=== PATIENT | female | born 1950 | race Caucasian/White ===

== ENCOUNTER 2017-04-09 15:22 | Emergency (ER) | payer MEDICARE, MEDICAID ==
[2017-04-09 15:32] VITALS: BP 138/75; RESP 16; TEMP 98.5; O2SAT 97
[2017-04-09 16:23] LABS: BASO % 0.3 % (0.0-2.0); EOS # 0.2 K/uL (0.0-0.7); EOS % 2.4 % (0.0-4.0); HEMATOCRIT 41.3 % (34.0-47.0); LYMPH % 32.1 % (20.0-40.0); MEAN CORPUSCULAR HEMOGLOBIN 29.3 pg (27.0-31.0); MEAN CORPUSCULAR HGB CONC 32.9 g/dL (33.0-37.0); MEAN PLATELET VOLUME 8.3 fl (7.2-11.7); MONO # 0.7 K/uL (0.0-0.8); MONO % 7.7 % (0.0-10.0); NEUT # 5.4 K/uL (1.8-7.0); NEUT % 57.5 % (50.0-75.0); RED CELL DISTRIBUTION WIDTH 13.8 % (11.5-14.5); WHITE BLOOD COUNT 9.3 K/uL (4.8-10.8)
[2017-04-09 16:36] LABS: RBC URINE 8 /hpf (0-3); URINE BILIRUBIN NEGATIVE (NEGATIVE); URINE BLOOD SMALL (NEGATIVE); URINE COLOR YELLOW (YELLOW); URINE GLUCOSE (UA) NEG (Normal); URINE KETONE NEGATIVE (NEGATIVE); URINE LEUKOCYTE ESTERASE NEG Leu/uL (Negative); URINE PROTEIN NEGATIVE (NEGATIVE); URINE UROBILINOGEN 0.2-1.0 mg/dL (0.2-1.0); WBC URINE < 1 /hpf (0-5)
[2017-04-09 16:41] LABS: ALB/GLOB RATIO 1.3 (1.0-2.1); ALKALINE PHOSPHATASE 154 U/L (38-126); ALT/SGPT 55 U/L (9-52); AST/SGOT 52 U/L (14-36); BILIRUBIN,TOTAL 0.4 mg/dl (0.2-1.3); BLOOD UREA NITROGEN 20 mg/dl (7-17); CALCIUM 9.5 mg/dL (8.4-10.2); CARBON DIOXIDE 25 mmol/L (22-30); CHLORIDE 105 mmol/L (98-107); GFR AFRICAN-AMERICAN > 60; GLUCOSE,RANDOM 92 mg/dL (65-105); POTASSIUM 4.1 MMOL/L (3.6-5.0); SODIUM 142 mmol/l (132-148); TOTAL PROTEIN 7.9 G/DL (6.3-8.2)
[2017-04-09 17:55] VITALS: PULSE 70
== END 2017-04-09 18:04 | disposition home or self-care (01) ==
LOC: H.ER 15:22
DX: M54.9 Dorsalgia, unspecified (principal); R06.02 Shortness of breath

== ENCOUNTER 2017-12-28 19:10 | Emergency (ER) | payer MEDICARE, MEDICAID ==
[2017-12-28 19:27] VITALS: TEMP 96.7; O2SAT 100
[2017-12-28] MEDS ORDERED: Iohexol 240 (50 ml) PO STA (20:04)
--- NOTE | 2017-12-28 20:26 | ED PDOC ---
HPI: Abdomen Time Seen by Provider: 12/28/17 19:38 Chief Complaint (Nursing): Abdominal Pain Chief Complaint (Provider): Abdominal Pain History Per: Patient History/Exam Limitations: no limitations Onset/Duration Of Symptoms: Days (x1) Outside of [place] travel?: No Current Symptoms Are (Timing): Still Present Quality Of Discomfort: Sharp, Cramping, "Pain" Associated Symptoms: Nausea, Diarrhea (x4 episodes). denies: Fever, Chills, Vomiting, Urinary Symptoms Additional Complaint(s): 67 year old female with a history of diverticulosis presents to the ED for sharp cramping abdominal pain onset last night associated 4 episodes nonbloody watery diarrhea. She reports nausea and no appetite but denies vomiting, PO intake, fever, chills, travel, urinary symptoms, or any other medical complaints. She states she took augmentin for an ear infection 2 weeks ago. PMD: Dr. Duarte Harvey Past Medical History Reviewed: Historical Data, Nursing Documentation, Vital Signs Vital Signs: Last Vital Signs Temp 96.7 F L 12/28/17 19:24 Pulse 90 12/29/17 00:48 Resp 20 12/29/17 00:48 BP 128/65 12/29/17 00:48 Pulse Ox 100 12/30/17 03:59 - Medical History Other PMH: diverticulosis - Surgical History Other surgeries: Tubal ligation - Family History Family History: States: Unknown Family Hx - Social History Current smoker - smoking cessation education provided: No Ex-Smoker (has not smoked in the last 12 months): No Alcohol: None Drugs: Denies - Immunization History Hx Tetanus Toxoid Vaccination: No Hx Influenza Vaccination: Yes Hx Pneumococcal Vaccination: No - Home Medications Home Medications: Ambulatory Orders Medication Instructions Recorded Meloxicam [Mobic] 7.5 mg PO DAILY PRN #30 tab 04/09/17 Methocarbamol [Robaxin] 500 mg PO Q8 PRN #30 tab 04/09/17 Ondansetron ODT [Zofran ODT] 4 mg PO Q6 PRN #16 odt 12/29/17 - Allergies Allergies/Adverse Reactions: Allergies Allergy/AdvReac Type Severity Reaction Status Date / Time No Known Allergies Allergy Verified 12/28/17 19:24 Review of Systems ROS Statement: Except As Marked, All Systems Reviewed And Found Negative Gastrointestinal: Positive for: Nausea, Abdominal Pain, Diarrhea. Negative for : Vomiting Physical Exam - Reviewed Nursing Documentation Reviewed: Yes Vital Signs Reviewed: Yes - Physical Exam Appears: Positive for: Non-toxic, In Acute Distress (painful) Head Exam: Positive for: ATRAUMATIC, NORMOCEPHALIC Skin: Positive for: Warm, Dry Eye Exam: Positive for: EOMI, PERRL ENT: Negative for: Pharyngeal Erythema, Tonsillar Exudate Neck: Positive for: Painless ROM, Supple Cardiovascular/Chest: Positive for: Regular Rate, Rhythm, Chest Non Tender Respiratory: Positive for: Normal Breath Sounds. Negative for: Respiratory Distress Gastrointestinal/Abdominal: Positive for: Soft, Tenderness (to palpation bilateral lower quadrants ), Other (positive McBurney's point tenderness, negative Juani's sign). Negative for: Mass, Guarding, Rebound Back: Positive for: Normal Inspection. Negative for: Decreased ROM Extremity: Positive for: Normal ROM. Negative for: Deformity Lymphatic: Negative for: Adenopathy Neurologic/Psych: Positive for: Alert. Negative for: Motor/Sensory Deficits - Laboratory Results Result Diagrams: 12/28/17 20:35 12/28/17 20:35 - ECG O2 Sat by Pulse Oximetry: 100 (RA) Pulse Ox Interpretation: Normal Medical Decision Making Medical Decision Making: Time: 20:04 Initial Impression: Abdominal pain Differential diagnoses include but are not limited to: Diverticulitis, colitis, enteritis, appendicitis Initial Plan: --CT abd & pelvis --CMP --Lactic acid --Lipase --Magnesium --Phosphorus --U preg --CBC with differentials --Onmipaque 50 ml PO --Toradol 15 mg IVP Scribe Attestation: Documented by Patricia Arriaza, acting as a scribe for Cecelia Starkey MD Provider Scribe Attestation: All medical record entries made by the Scribe were at my direction and personally dictated by me. I have reviewed the chart and agree that the record accurately reflects my personal performance of the history, physical exam, medical decision making, and the department course for this patient. I have also personally directed, reviewed, and agree with the discharge instructions and disposition Disposition - Clinical Impression Clinical Impression: Abdominal pain - Patient ED Disposition Is Patient to be Admitted: Transfer of Care - Disposition Disposition: Transfer of Care Disposition Time: 00:00 Condition: STABLE Additional Instructions: ZOLTAN WAN, thank you for letting us take care of you today. Your provider was Eran Nelson MD and you were treated for ABD PAIN. The emergency medical care you received today was directed at your acute symptoms. If you were prescribed any medication, please fill it and take as directed. It may take several days for your symptoms to resolve. Return to the Emergency Department if your symptoms worsen, do not improve, or if you have any other problems. Please contact your doctor or call one of the physicians/clinics you have been referred to that are listed on the Patient Visit Information form that is included in your discharge packet. Bring any paperwork you were given at discharge with you along with any medications you are taking to your follow up visit. Our treatment cannot replace ongoing medical care by a primary care provider outside of the emergency department. Thank you for allowing the [facility] team to be part of your care today. If you had an X-Ray or CT scan: A Radiologist will review the ED reading if any change in treatment is needed we will contact you. If you had a blood, urine, or wound culture: It will take several days for the results, if any change in treatment is needed we will contact you. If you had an STI test: It will take 48 hours for the results. Please call after 1 week if you have not heard back. Prescriptions: Ondansetron ODT [Zofran ODT] 4 mg PO Q6 PRN #16 odt PRN Reason: Nausea/Vomiting Instructions: Acute Abdomen (Belly Pain) Forms: [employer] (Occitan) Patient Signed Over To: Eran Nelson Handoff Comments: pending Ct and final disposition
[2017-12-28 20:39] LABS: BASO % 0.4 % (0.0-2.0); EOS # 0.2 K/uL (0.0-0.7); EOS % 1.8 % (0.0-4.0); HEMOGLOBIN 13.6 g/dL (12.0-16.0); LYMPH # 2.6 K/uL (1.0-4.3); LYMPH % 26.6 % (20.0-40.0); MEAN CELL VOLUME 89.8 fl (81.0-99.0); MEAN CORPUSCULAR HEMOGLOBIN 30.4 pg (27.0-31.0); MEAN CORPUSCULAR HGB CONC 33.8 g/dL (33.0-37.0); MEAN PLATELET VOLUME 8.2 fl (7.2-11.7); MONO # 0.7 K/uL (0.0-0.8); MONO % 7.2 % (0.0-10.0); NEUT # 6.4 K/uL (1.8-7.0); RBC 4.48 Mil/uL (3.80-5.20); RED CELL DISTRIBUTION WIDTH 14.2 % (11.5-14.5)
[2017-12-28 20:52] LABS: ALB/GLOB RATIO 1.2 (1.0-2.1); ALBUMIN 4.3 g/dL (3.5-5.0); ALT/SGPT 53 U/L (9-52); AST/SGOT 50 U/L (14-36); BLOOD UREA NITROGEN 12 mg/dl (7-17); CALCIUM 9.6 mg/dL (8.4-10.2); GFR AFRICAN-AMERICAN > 60; GFR NON-AFRICAN AMERICAN > 60; LIPASE 41 U/L (23-300)
[2017-12-28] MEDS ORDERED: Iohexol 300 100 ML IJ ONE (23:16)
[2017-12-28] MEDS ORDERED: Sodium Chloride 0.9% 50 ML IV ONE (23:16)
--- NOTE | 2017-12-29 00:34 | ED PDOC ---
- Laboratory Results Result Diagrams: 12/28/17 20:35 12/28/17 20:35 - ECG O2 Sat by Pulse Oximetry: 100 (RA) Medical Decision Making Medical Decision Making: Time; 00:00 --Patient's care transferred to Dr. Nelson by Dr. Starkey pending CT results and final disposition. Labs reveal no clinically significant abnormalities. CT FINDINGS: Lung bases: Atelectasis posterior lungs. ABDOMEN: Liver: Fatty infiltration of the liver. Gallbladder and bile ducts: Unremarkable. No calcified stones. No ductal dilation. Pancreas: Unremarkable. No mass. No ductal dilation. Spleen: Unremarkable. No splenomegaly. Adrenals: Unremarkable. No mass. Kidneys and ureters: Unremarkable. No solid mass. No hydronephrosis. Stomach and bowel: Unremarkable. No obstruction. No mucosal thickening. PELVIS: Appendix: Normal appendix. Bladder: Unremarkable. No mass. Reproductive: Calcified uterine fibroid. ABDOMEN and PELVIS: Intraperitoneal space: Unremarkable. No free air. No significant fluid collection. Bones/joints: No acute fracture. No dislocation. Soft tissues: Unremarkable. 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 No abdominal aortic aneurysm. Lymph nodes: Unremarkable. No enlarged lymph nodes. IMPRESSION: No acute findings. Time: 00:33 --Patient is stable and will be discharged home. Diagnosis is abdominal pain. Return to the ED if symptoms persist or worsen. Follow up with PMD. ---- Scribe Attestation: Documented by Dominga Johansen, acting as a scribe for Eran Nelson MD Provider Scribe Attestation: All medical record entries made by the Scribe were at my direction and personally dictated by me. I have reviewed the chart and agree that the record accurately reflects my personal performance of the history, physical exam, medical decision making, and the department course for this patient. I have also personally directed, reviewed, and agree with the discharge instructions and disposition. Disposition - Clinical Impression Clinical Impression: Abdominal pain - POA Present On Arrival: None - Disposition Disposition: Routine/Home Disposition Time: 00:33 Condition: STABLE Additional Instructions: ZOLTAN WAN, thank you for letting us take care of you today. Your provider was Eran Nelson MD and you were treated for ABD PAIN. The emergency medical care you received today was directed at your acute symptoms. If you were prescribed any medication, please fill it and take as directed. It may take several days for your symptoms to resolve. Return to the Emergency Department if your symptoms worsen, do not improve, or if you have any other problems. Please contact your doctor or call one of the physicians/clinics you have been referred to that are listed on the Patient Visit Information form that is included in your discharge packet. Bring any paperwork you were given at discharge with you along with any medications you are taking to your follow up visit. Our treatment cannot replace ongoing medical care by a primary care provider outside of the emergency department. Thank you for allowing the [facility] team to be part of your care today. If you had an X-Ray or CT scan: A Radiologist will review the ED reading if any change in treatment is needed we will contact you. If you had a blood, urine, or wound culture: It will take several days for the results, if any change in treatment is needed we will contact you. If you had an STI test: It will take 48 hours for the results. Please call after 1 week if you have not heard back. Prescriptions: Ondansetron ODT [Zofran ODT] 4 mg PO Q6 PRN #16 odt PRN Reason: Nausea/Vomiting Instructions: Acute Abdomen (Belly Pain) Forms: [employer] (Latvian)
[2017-12-29 00:48] VITALS: BP 128/65; PULSE 90; RESP 20
--- NOTE | 2017-12-29 15:31 | CT ---
PROCEDURE: CT scan abdomen pelvis 12/28/2017 HISTORY: Abdominal pain. COMPARISON: None. TECHNIQUE: Contiguous helical/ transaxial sections of the pelvis performed following oral and intravenous injection of approximately 90 cc Omnipaque 300 contrast material. Additional 2D sagittal and coronal reformats provided generated. Radiation dose: Total exam DLP = 624.67 mGy-cm. This CT exam was performed using one or more of the following dose reduction techniques: Automated exposure control, adjustment of the mA and/or kV according to patient size, and/or use of iterative reconstruction technique. FINDINGS: LOWER THORAX: Lung bases clear. No infiltrate effusion or basilar pneumothorax. LIVER: Liver is enlarged measuring just over 20 cm in CC dimension. Liver demonstrates moderate to fairly significant diffuse fatty hepatic infiltration. No obvious hepatic mass collection or calcification. Portal and splenic veins are patent. GALLBLADDER AND BILE DUCTS: Gallbladder physiologically distended. No evidence of intraluminal gallbladder calculi. PANCREAS: Unremarkable. No gross lesion or ductal dilatation. SPLEEN: Spleen exhibits normal size. No evidence of splenic mass collection or calcification. ADRENALS: There are no adrenal lesions seen. KIDNEYS AND URETERS: Kidneys demonstrate symmetric nephrograms. No evidence of nephrolithiasis or hydronephrosis. VASCULATURE: Unremarkable. No aortic aneurysm. BOWEL: Evaluation of the bowel is limited due to incomplete opacification. The stomach is incompletely distended which in part accounts for thick-walled appearance. Gastritis or other intrinsic wall lesion not excluded. Visualized loops of small bowel exhibit normal contour and caliber. No evidence of acute mechanical small bowel obstruction. There are scattered colonic diverticula seen along the sigmoid and distal descending colon however no radiographic evidence of acute diverticulitis. APPENDIX: The appendix unremarkable best seen on axial image number [id number]. No periappendiceal inflammatory changes. PERITONEUM: Unremarkable. No free fluid. No free air. Small fat containing umbilical hernia. LYMPH NODES: Unremarkable. No enlarged lymph nodes. BLADDER: Urinary bladder is incompletely distended which in part accounts thick-walled appearance. Correlation with urinalysis suggested to exclude cystitis. REPRODUCTIVE: Calcified uterine fibroid. Slightly prominent endometrial canal. . Consider follow-up pelvic ultrasound for further evaluation to exclude endometrial pathology. . There is mild locally enlarged venous engorgement -congestion left periuterine region suggesting gonadal vein incontinence. Clinical correlation recommended. BONES: Minor multilevel degenerative spondylosis of the lower thoracic and lumbar spine. There are no acute compression fractures no retropulsed fragments. OTHER FINDINGS: None. 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 Calcified uterine fibroid. Prominent endometrial canal; recommend followup pelvic ultrasound to exclude in the endometrial pathology.
== END 2017-12-29 00:52 | disposition home or self-care (01) ==
LOC: H.ER 19:10
DX: R10.9 Unspecified abdominal pain (principal); R19.7 Diarrhea, unspecified; R11.0 Nausea; D25.9 Leiomyoma of uterus, unspecified
CPT/HCPCS: 74177; 80053; 83605; 83690; 83735; 84100; 85025; 87040; 96374; 99284; J1885; Q9966; Q9967

== ENCOUNTER 2018-03-19 16:10 | Emergency (ER) | payer MEDICARE, MEDICAID ==
[2018-03-19 16:32] VITALS: BP 130/84; PULSE 80; RESP 18; TEMP 97.7; O2SAT 98
[2018-03-19] MEDS ORDERED: Iohexol 240 (50 ml) PO ONE ×2 (16:59→17:00)
[2018-03-19] MEDS ORDERED: Sodium Chloride 0.9% 1,000 ML IV STA (17:00)
--- NOTE | 2018-03-19 17:03 | ED PDOC ---
HPI: Abdomen Time Seen by Provider: 03/19/18 16:42 Chief Complaint (Nursing): Abdominal Pain Chief Complaint (Provider): Abd pain History Per: Patient History/Exam Limitations: no limitations Onset/Duration Of Symptoms: Days (1 week) Current Symptoms Are (Timing): Still Present Additional Complaint(s): Pt. with constant pain RLQ and right lower back for 1 week. No nausea, vomit, diarrhea, weakness, dysuria. No vaginal bleed. No fever. Started after pushing something heavy. No numbness, tingles, incontinence, constipation. Past Medical History Reviewed: Nursing Documentation, Vital Signs Vital Signs: Last Vital Signs Temp 97.7 F 03/19/18 16:30 Pulse 80 03/19/18 16:30 Resp 18 03/19/18 16:30 BP 130/84 03/19/18 16:30 Pulse Ox 98 03/19/18 17:03 - Medical History PMH: No Chronic Diseases - Surgical History Surgical History: No Surg Hx - Family History Family History: States: Unknown Family Hx - Immunization History Hx Tetanus Toxoid Vaccination: No Hx Influenza Vaccination: Yes Hx Pneumococcal Vaccination: No - Home Medications Home Medications: Ambulatory Orders Medication Instructions Recorded Meloxicam [Mobic] 7.5 mg PO DAILY PRN #30 tab 04/09/17 Methocarbamol [Robaxin] 500 mg PO Q8 PRN #30 tab 04/09/17 Ondansetron ODT [Zofran ODT] 4 mg PO Q6 PRN #16 odt 12/29/17 - Allergies Allergies/Adverse Reactions: Allergies Allergy/AdvReac Type Severity Reaction Status Date / Time No Known Allergies Allergy Verified 12/28/17 19:24 Review of Systems ROS Statement: Except As Marked, All Systems Reviewed And Found Negative Gastrointestinal: Positive for: Abdominal Pain Musculoskeletal: Positive for: Back Pain Physical Exam - Reviewed Nursing Documentation Reviewed: Yes Vital Signs Reviewed: Yes - Physical Exam Appears: Positive for: Non-toxic, No Acute Distress Head Exam: Positive for: ATRAUMATIC, NORMAL INSPECTION, NORMOCEPHALIC Skin: Positive for: Normal Color, Warm, DRY Eye Exam: Positive for: EOMI, Normal appearance, PERRL ENT: Positive for: Normal ENT Inspection Neck: Positive for: Normal, Painless ROM Cardiovascular/Chest: Positive for: Regular Rate, Rhythm Respiratory: Positive for: CNT, Normal Breath Sounds Gastrointestinal/Abdominal: Positive for: Soft, Tenderness (RLQ) Back: Positive for: Other (mild right lower). Negative for: L CVA Tenderness, R CVA Tenderness Extremity: Positive for: Normal ROM. Negative for: Tenderness Neurologic/Psych: Positive for: Alert, Oriented - Laboratory Results Result Diagrams: 03/19/18 17:45 03/19/18 17:45 Interpretation Of Abn Labs: mild elevated ast/alt - ECG O2 Sat by Pulse Oximetry: 98 Pulse Ox Interpretation: Normal - Progress ED Course And Treament: 1855: Dr. Ordoñez to fu on urine and ct. Stable. AAOx3. Disposition - Clinical Impression Clinical Impression: Abdominal pain, Abdominal tenderness - Patient ED Disposition Is Patient to be Admitted: Transfer of Care - Disposition Disposition Time: 18:56 Condition: STABLE Patient Signed Over To: Willi Ordoñez
[2018-03-19] MEDS ORDERED: Iohexol 240 (50 ml) ONE (17:45)
[2018-03-19 17:54] LABS: BASO # 0.1 K/uL (0.0-0.2); BASO % 0.7 % (0.0-2.0); EOS # 0.1 K/uL (0.0-0.7); EOS % 1.7 % (0.0-4.0); HEMOGLOBIN 13.9 g/dL (12.0-16.0); LYMPH # 2.5 K/uL (1.0-4.3); LYMPH % 33.6 % (20.0-40.0); MEAN CELL VOLUME 90.7 fl (81.0-99.0); MEAN CORPUSCULAR HEMOGLOBIN 30.2 pg (27.0-31.0); MEAN CORPUSCULAR HGB CONC 33.3 g/dL (33.0-37.0); MEAN PLATELET VOLUME 8.4 fl (7.2-11.7); MONO # 0.6 K/uL (0.0-0.8); MONO % 7.8 % (0.0-10.0); NEUT # 4.3 K/uL (1.8-7.0); NEUT % 56.2 % (50.0-75.0); NRBC % 0.1 % (0.0-0.0); RBC 4.6 Mil/uL (3.80-5.20); RED CELL DISTRIBUTION WIDTH 14.1 % (11.5-14.5); WHITE BLOOD COUNT 7.6 K/uL (4.8-10.8)
[2018-03-19 17:58] LABS: ALB/GLOB RATIO 1.2 (1.0-2.1); ALBUMIN 4.3 g/dL (3.5-5.0); BLOOD UREA NITROGEN 20 mg/dl (7-17); CALCIUM 8.8 mg/dL (8.4-10.2); GFR NON-AFRICAN AMERICAN > 60
[2018-03-19 18:03] LABS: ALT/SGPT 63 U/L (9-52); AST/SGOT 57 U/L (14-36)
[2018-03-19] MEDS ORDERED: Sodium Chloride 0.9% 50 ML IV ONE (20:06)
[2018-03-19] MEDS ORDERED: Iohexol 300 100 ML IJ ONE (20:06)
--- NOTE | 2018-03-19 21:14 | ED PDOC ---
"- Laboratory Results Result Diagrams: 03/19/18 17:45 03/19/18 17:45 - ECG O2 Sat by Pulse Oximetry: 98 Pulse Ox Interpretation: Normal Medical Decision Making Medical Decision MakinPM Endorsed to me by Dr. Cook pending CT and re-eval 9PM EXAM: CT Abdomen and Pelvis With Intravenous Contrast CLINICAL HISTORY: 67 years old, female; Pain; Abdominal pain; Localized; Right lower quadrant (rlq); Additional info: Abd pain TECHNIQUE: Axial computed tomography images of the abdomen and pelvis with intravenous contrast. All CT scans at this facility use at least one of these dose optimization techniques: automated exposure control; mA and/or kV adjustment per patient size (includes targeted exams where dose is matched to clinical indication); or iterative reconstruction. Coronal and sagittal reformatted images were created and reviewed. CONTRAST: 95 mL of [id number] was administered intravenously. COMPARISON: No relevant prior studies available. FINDINGS: Lung bases: Unremarkable. No mass. No consolidation. ABDOMEN: Liver: Fatty infiltration of the liver. Gallbladder and bile ducts: Unremarkable. No calcified stones. No ductal dilation. Pancreas: Unremarkable. No mass. No ductal dilation. Spleen: Unremarkable. No splenomegaly. Adrenals: Unremarkable. No mass. Kidneys and ureters: Unremarkable. No solid mass. No hydronephrosis. Stomach and bowel: Unremarkable. No obstruction. No mucosal thickening. PELVIS: Appendix: Normal appendix. Bladder: Unremarkable. No mass. Reproductive: Calcified uterine fibroid. ABDOMEN and PELVIS: Intraperitoneal space: Unremarkable. No free air. No significant fluid collection. Bones/joints: No acute fracture. No dislocation. Soft tissues: Unremarkable. 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 No abdominal aortic aneurysm. Lymph nodes: Unremarkable. No enlarged lymph nodes. ZOLTAN RAMSAY | Preliminary Radiology Report HIDE WORKER (QA) DISCREPANCY? If there is a discrepancy between the preliminary and final interpretation, please notify [facility] via [email or web address]. If you do not have access to our QA portal, call our QA team at [phone] CONFIDENTIALITY STATEMENT This report is intended only for the use of the referring physician, and only in accordance with law, If you received this in error, call [phone] Page 2 of 2 IMPRESSION: No acute findings. Normal appendix. Thank you for allowing us to participate in the care of your patient. Dictated and Authenticated by: Garth Whaley MD 03/19/2018 9:06 PM Eastern Time ([place] & [place]) Patient re-evaluated, sitting up in bed, appearing very well, happy. States she 's feeling better. Advised her of results and copy of CT given. Advised her to followup with Dr. Tejas Meraz next week for followup, return precautions given. Vitals stable. Disposition - Clinical Impression Clinical Impression: Abdominal pain, Abdominal tenderness - POA Present On Arrival: None - Disposition Referrals: Duarte Harvey MD [Family Provider] - Disposition: Routine/Home Disposition Time: 21:13 Condition: IMPROVED Prescriptions: Cyclobenzaprine [Cyclobenzaprine HCl] 10 mg PO BID #15 tab Ibuprofen [Motrin Tab] 600 mg PO Q6 #30 tab Instructions: Acute Abdomen (Belly Pain), Adult (DC), Muscle Strain Print Language: SYRIAC"
--- NOTE | 2018-03-20 12:51 | CT ---
Date of service: 03/19/2018 PROCEDURE: CT Abdomen and Pelvis with contrast HISTORY: abd pain COMPARISON: 12/28/2017 TECHNIQUE: Contrast dose: 95 milliliters Radiation dose: Total exam DLP = 687 mGy-cm. This CT exam was performed using one or more of the following dose reduction techniques: Automated exposure control, adjustment of the mA and/or kV according to patient size, and/or use of iterative reconstruction technique. FINDINGS: LOWER THORAX: No focal infiltrate or effusion at the lung bases. Mild chronic interstitial change. No pericardial effusion is seen. Visualized esophagus, stomach, and duodenum are unremarkable. LIVER: Fatty infiltration of the liver without evidence of focal mass or intrahepatic ductal dilatation. GALLBLADDER AND BILE DUCTS: Unremarkable. PANCREAS: Unremarkable. No gross lesion or ductal dilatation. SPLEEN: Unremarkable. ADRENALS: Unremarkable. No mass. KIDNEYS AND URETERS: Unremarkable. No hydronephrosis. No solid mass. VASCULATURE: Unremarkable. No aortic aneurysm. BOWEL: Unremarkable. No obstruction. No gross mural thickening. Mild chronic diverticular changes are noted without pericolonic inflammatory change. APPENDIX: Normal appendix. PERITONEUM: Unremarkable. No free fluid. No free air. LYMPH NODES: Unremarkable. No enlarged lymph nodes. BLADDER: Unremarkable. REPRODUCTIVE: Small uterine fibroid. No adnexal mass. Minor amount of fluid in the central endometrial canal is not excluded. BONES: No acute fracture. OTHER FINDINGS: None. IMPRESSION: No evidence of acute inflammatory process in the abdomen and pelvis. No CT scan evidence of appendicitis. Moderate fatty infiltration of the liver. This agrees with preliminary report provided by the on-call radiologist.
== END 2018-03-19 21:30 | disposition home or self-care (01) ==
LOC: H.ER 16:10
DX: R10.31 Right lower quadrant pain (principal)
CPT/HCPCS: 74177; 80053; 85025; 96374; 99282; J1885; J7030; Q9966; Q9967

== ENCOUNTER 2018-06-20 11:05 | Emergency (ER) | payer MEDICARE, MEDICAID ==
[2018-06-20 11:15] VITALS: BMI 29.2
[2018-06-20] MEDS ORDERED: Sucralfate 1 gm/10 ml Oral Susp UD ONE (11:49)
--- NOTE | 2018-06-20 12:04 | ED PDOC ---
HPI: Abdomen Time Seen by Provider: 06/20/18 11:30 Chief Complaint (Nursing): Abdominal Pain Chief Complaint (Provider): Abdominal Pain History Per: Patient History/Exam Limitations: no limitations Onset/Duration Of Symptoms: Days (x1) Current Symptoms Are (Timing): Still Present Quality Of Discomfort: "Pain" Associated Symptoms: Fever, Nausea, Back Pain (to the left side). denies: Vomiting, Diarrhea, Urinary Symptoms Exacerbating Factors: denies: Cough Additional Complaint(s): 68 y/o female with no significant PMHx, presents to the ED for evaluation of abdominal pain, onset yesterday. Patient reports pain is associated with fever, nausea, and left sided back pain. Otherwise, patient denies vomiting, diarrhea, cough, swelling and any urinary changes. PMD: Dr. Duarte Harvey Past Medical History Reviewed: Historical Data, Nursing Documentation, Vital Signs Vital Signs: Last Vital Signs Temp 97.6 F 06/20/18 11:14 Pulse 73 06/20/18 11:14 Resp BP 151/76 H 06/20/18 11:14 Pulse Ox 97 06/20/18 11:14 - Medical History PMH: No Chronic Diseases - Surgical History Other surgeries: Cataracts Surgery - Family History Family History: States: Unknown Family Hx - Immunization History Hx Tetanus Toxoid Vaccination: No Hx Influenza Vaccination: Yes Hx Pneumococcal Vaccination: No - Home Medications Home Medications: Ambulatory Orders Medication Instructions Recorded Meloxicam [Mobic] 7.5 mg PO DAILY PRN #30 tab 04/09/17 Methocarbamol [Robaxin] 500 mg PO Q8 PRN #30 tab 04/09/17 Ondansetron ODT [Zofran ODT] 4 mg PO Q6 PRN #16 odt 12/29/17 Cyclobenzaprine [Cyclobenzaprine 10 mg PO BID #15 tab 03/19/18 HCl] Ibuprofen [Motrin Tab] 600 mg PO Q6 #30 tab 03/19/18 Famotidine [Pepcid] 20 mg PO BID #28 tab 06/20/18 Nitrofurantoin Macrocrystals 100 mg PO BID #10 cap 06/20/18 [Macrobid] - Allergies Allergies/Adverse Reactions: Allergies Allergy/AdvReac Type Severity Reaction Status Date / Time No Known Allergies Allergy Verified 06/25/18 19:24 Review of Systems ROS Statement: Except As Marked, All Systems Reviewed And Found Negative Constitutional: Positive for: Fever Respiratory: Negative for: Cough Gastrointestinal: Positive for: Nausea, Abdominal Pain. Negative for: Vomiting, Diarrhea Genitourinary Female: Negative for: Dysuria, Frequency, Hematuria Musculoskeletal: Positive for: Back Pain (left sided) Physical Exam - Reviewed Nursing Documentation Reviewed: Yes Vital Signs Reviewed: Yes - Physical Exam Appears: Positive for: Well, No Acute Distress Head Exam: Positive for: ATRAUMATIC, NORMAL INSPECTION, NORMOCEPHALIC Skin: Positive for: Normal Color, Warm, Dry Eye Exam: Positive for: Normal appearance ENT: Positive for: Normal ENT Inspection Neck: Positive for: Normal Cardiovascular/Chest: Positive for: Regular Rate, Rhythm. Negative for: Murmur Respiratory: Positive for: Normal Breath Sounds. Negative for: Respiratory Distress Gastrointestinal/Abdominal: Positive for: Normal Exam, Tenderness (epigastric) Back: Positive for: L CVA Tenderness. Negative for: R CVA Tenderness, Vertebral Tenderness Extremity: Positive for: Normal ROM. Negative for: Deformity Neurologic/Psych: Positive for: Alert, Oriented (x3). Negative for: Motor/Sensory Deficits - ECG O2 Sat by Pulse Oximetry: 97 (RA) Pulse Ox Interpretation: Normal Medical Decision Making Medical Decision Making: Time: 11:38 Impression: Gastritis and Urinary Tract Infection Plan: -Urine dipstick POC -Carafate Oral 1gm PO QID Scribe Attestation: Documented by Lluvia Davis, acting as a scribe for Dr. Magnolia Braden Provider Scribe Attestation: All medical record entries made by the Scribe were at my direction and personally dictated by me. I have reviewed the chart and agree that the record accurately reflects my personal performance of the history, physical exam, medical decision making, and the department course for this patient. I have also personally directed, reviewed, and agree with the discharge instructions and disposition. Disposition - Clinical Impression Clinical Impression: Gastritis, UTI (urinary tract infection) - Patient ED Disposition Is Patient to be Admitted: No Doctor Will See Patient In The: Office Counseled Patient/Family Regarding: Diagnosis - Disposition Referrals: FAMILY PROVIDER,NO [Primary Care Provider] - Disposition: Routine/Home Disposition Time: 14:15 Condition: STABLE Prescriptions: Famotidine [Pepcid] 20 mg PO BID #28 tab Nitrofurantoin Macrocrystals [Macrobid] 100 mg PO BID #10 cap Instructions: Urinary Tract Infection, Adult (DC), Gastritis Forms: [facility] ([place]) Print Language: [place] - POA Present On Arrival: None
[2018-06-20] MEDS ORDERED: Sucralfate 1 gm/10 ml Oral Susp UD PO SCH (13:00)
[2018-06-20 14:51] VITALS: BP 127/80; PULSE 78; RESP 18; TEMP 97.8; O2SAT 98
== END 2018-06-20 14:53 | disposition home or self-care (01) ==
LOC: SUPCPDRO 11:05 → H.ER 11:05
DX: N39.0 Urinary tract infection, site not specified (principal); K29.70 Gastritis, unspecified, without bleeding

== ENCOUNTER 2018-10-30 14:38 | Emergency (ER) | payer MEDICARE, MEDICAID ==
[2018-10-30 14:38] VITALS: BMI 29.2
[2018-10-30 15:08] VITALS: BP 139/74; PULSE 67; RESP 18; TEMP 98.4; O2SAT 99
[2018-10-30] MEDS ORDERED: Lidocaine 5% Patch TD STA (15:16)
--- NOTE | 2018-10-30 15:25 | ED PDOC ---
HPI: Back Time Seen by Provider: 10/30/18 15:15 Chief Complaint (Nursing): Back Pain Chief Complaint (Provider): Back Pain History Per: Patient History/Exam Limitations: no limitations Onset/Duration Of Symptoms: Days (x3) Current Symptoms Are (Timing): Still Present Additional Complaint(s): Patient is a 68 y/o female with a PMHx of urinary incontinence who presents to the ED for evaluation of atraumatic, non-radiating lower back pain for the past three days. Patient states the pain worsens with movement especially when walking or twisting her upper torso. Patient claims she has had similar symptoms in the past and was prescribed Naproxen and Flexeril for relief. Patient noted she has been taking the medications with minimal relief. Patient indicated her last dose of Naproxen was 20:00 last night. Patient further states she was prescribed medication by her PCP for her urinary incontinence which she has now had for over a year. Patient reports she experiences urinary incontinence daily and currently it is at baseline. Patient reports her urinary incontinence has not worsened since onset of her back pain. Patient denies fever, chills, weakness, numbness or tingling, saddle paresthesia, stool incontinence, rash, trauma, dysuria, hematuria, nausea, vomtiing, and abdominal pain. PCP: Dr. Ogden Past Medical History Reviewed: Historical Data, Nursing Documentation, Vital Signs Vital Signs: Last Vital Signs Temp 98.4 F 10/30/18 15:04 Pulse 67 10/30/18 15:04 Resp 18 10/30/18 15:04 BP 139/74 10/30/18 15:04 Pulse Ox 99 10/30/18 15:04 - Medical History Other PMH: urinary incontinence - Surgical History Surgical History: No Surg Hx - Family History Family History: States: Unknown Family Hx - Immunization History Hx Tetanus Toxoid Vaccination: No Hx Influenza Vaccination: Yes Hx Pneumococcal Vaccination: No - Home Medications Home Medications: Ambulatory Orders Medication Instructions Recorded Meloxicam [Mobic] 7.5 mg PO DAILY PRN #30 tab 04/09/17 Methocarbamol [Robaxin] 500 mg PO Q8 PRN #30 tab 04/09/17 Ondansetron ODT [Zofran ODT] 4 mg PO Q6 PRN #16 odt 12/29/17 Cyclobenzaprine [Cyclobenzaprine 10 mg PO BID #15 tab 03/19/18 HCl] Ibuprofen [Motrin Tab] 600 mg PO Q6 #30 tab 03/19/18 Famotidine [Pepcid] 20 mg PO BID #28 tab 06/20/18 Nitrofurantoin Macrocrystals 100 mg PO BID #10 cap 06/20/18 [Macrobid] Meloxicam [Mobic] 7.5 mg PO DAILY PRN #10 tab 10/30/18 Methocarbamol [Robaxin] 500 mg PO TID PRN #10 tablet 10/30/18 - Allergies Allergies/Adverse Reactions: Allergies Allergy/AdvReac Type Severity Reaction Status Date / Time No Known Allergies Allergy Verified 10/30/18 15:04 Review of Systems ROS Statement: Except As Marked, All Systems Reviewed And Found Negative Constitutional: Negative for: Fever, Chills Gastrointestinal: Negative for: Nausea, Vomiting, Abdominal Pain, Other (stool incontinence) Genitourinary Female: Positive for: Incontinence. Negative for: Dysuria, Hematuria Musculoskeletal: Positive for: Back Pain (lower). Negative for: Other (saddle paresthesia) Skin: Negative for: Rash Neurological: Negative for: Weakness, Numbness (or tingling) Physical Exam - Reviewed Nursing Documentation Reviewed: Yes Vital Signs Reviewed: Yes - Physical Exam Appears: Positive for: In Acute Distress (minimal painful) Head Exam: Positive for: ATRAUMATIC, NORMAL INSPECTION, NORMOCEPHALIC Skin: Positive for: Normal Color, Warm, DRY Eye Exam: Positive for: EOMI, Normal appearance, PERRL Neck: Positive for: Normal, Painless ROM, Supple Cardiovascular/Chest: Positive for: Regular Rate, Rhythm. Negative for: Murmur Respiratory: Positive for: Normal Breath Sounds. Negative for: Respiratory Distress Pulses-Dorsalis Pedis (L): 2+ Pulses-Dorsalis Pedis (R): 2+ Gastrointestinal/Abdominal: Positive for: Normal Exam, Soft. Negative for: Tenderness Back: Positive for: Normal Inspection, Other (minimal bilateral paralumbar muscle spasms). Negative for: L CVA Tenderness, R CVA Tenderness, Vertebral Tenderness (midline) Extremity: Positive for: Normal ROM, Capillary Refill (less than 2 seconds), Other (bilateral lower extremity strength 5/5). Negative for: Pedal Edema, Deformity Neurological/Psych: Positive for: Awake, Alert, Oriented (x3), Gait (steady and unassisted) - ECG O2 Sat by Pulse Oximetry: 99 (RA) Pulse Ox Interpretation: Normal - Radiology X-Ray: Interpreted by Me (LS spine x-ray) X-Ray Interpretation: No Acute Disease - Progress Re-evaluation Time: 16:50 Condition: Re-examined, Improved Medical Decision Making Medical Decision Making: Time: 1515 Impression: Lower Back Pain Plan: Lidoderm 1 ea TD Toradol 10 mg IM Valium 5 mg PO LS Spine AP/LAT [Rad] UA Scribe Attestation: Documented by Tru Diaz, acting as a scribe Sidney Marrouqin PA-C. Provider Scribe Attestation: All medical record entries made by the Scribe were at my direction and personally dictated by me. I have reviewed the chart and agree that the record accurately reflects my personal performance of the history, physical exam, medical decision making, and the department course for this patient. I have also personally directed, reviewed, and agree with the discharge instructions and disposition. Disposition - Clinical Impression Clinical Impression: Low back pain - Patient ED Disposition Is Patient to be Admitted: No - Disposition Referrals: [facility] [Outside] [facility] [Outside] Disposition Time: 17:00 Condition: IMPROVED Additional Instructions: FOLLOW UP WITH YOUR DOCTOR FOR FURTHER EVALUATION RETURN TO ED IMMEDIATELY IF SYMPTOMS WORSEN ZOLTAN WAN, thank you for letting us take care of you today. Your provider was Eran Nelson MD and you were treated for BACK PAIN. The emergency medical care you received today was directed at your acute symptoms. If you were prescribed any medication, please fill it and take as directed. It may take several days for your symptoms to resolve. Return to the Emergency Department if your symptoms worsen, do not improve, or if you have any other problems. Please contact your doctor or call one of the physicians/clinics you have been referred to that are listed on the Patient Visit Information form that is included in your discharge packet. Bring any paperwork you were given at discharge with you along with any medications you are taking to your follow up visit. Our treatment cannot replace ongoing medical care by a primary care provider outside of the emergency department. Thank you for allowing the [facility] team to be part of your care today. If you had an X-Ray or CT scan: A Radiologist will review the ED reading if any change in treatment is needed we will contact you. If you had a blood, urine, or wound culture: It will take several days for the results, if any change in treatment is needed we will contact you. If you had an STI test: It will take 48 hours for the results. Please call after 1 week if you have not heard back. Prescriptions: Meloxicam [Mobic] 7.5 mg PO DAILY PRN #10 tab PRN Reason: Pain, Mild (1-3) Methocarbamol [Robaxin] 500 mg PO TID PRN #10 tablet PRN Reason: Muscle Spasm Instructions: Low Back Pain (DC) Forms: [facility] (Citizen [place])
[2018-10-30 16:28] LABS: SQUAMOUS EPITHIAL < 1 /hpf (0-5); URINE BILIRUBIN NEGATIVE (NEGATIVE); URINE BLOOD SMALL (NEGATIVE); URINE CLARITY CLEAR (Clear); URINE COLOR YELLOW (YELLOW); URINE GLUCOSE (UA) NEG (NEGATIVE); URINE LEUKOCYTE ESTERASE NEG Leu/uL (Negative); URINE PROTEIN NEGATIVE (NEGATIVE); URINE UROBILINOGEN 0.2-1.0 mg/dL (0.2-1.0)
--- NOTE | 2018-10-30 17:02 | RAD ---
Date of service: 10/30/2018 PROCEDURE: Radiographs of the Lumbar Spine. HISTORY: Pain COMPARISON: No prior TECHNIQUE: 5 views obtained. FINDINGS: BONES: No acute compression fractures nor retropulsed fragments. Vertebral bodies exhibit normal stature. Vertebral bodies and facets normally aligned DISC SPACES: . Minor posterior disc space narrowing seen at several levels. Small marginal anterolateral osteophytes are present. Facets are hypertrophic L5-S1 through the L3-L4 levels in decreasing order of severity. OTHER FINDINGS: None. IMPRESSION: No acute fractures. Mild multilevel degenerative spondylosis.
== END 2018-10-30 17:00 | disposition home or self-care (01) ==
LOC: H.ER 14:38
DX: M54.5 Low back pain (principal)
CPT/HCPCS: 72100; 81003; 96372; 99283; J1885